=== PATIENT | female | born 1985 | race Caucasian/White ===

== ENCOUNTER 2017-09-30 18:23 | Emergency (ER) | payer SELFPAY ==
[~2017-09-30] VITALS: Ht 165.1 cm; Wt 66.7 kg
[2017-09-30 18:26] VITALS: BP 135/90
[2017-09-30] MEDS ORDERED: CEPHALEXIN 500 MG CAPSULE PO ONE (19:00)
[2017-09-30] MEDS ORDERED: SULFAMETH./TRIMETHOPRIM DS 800MG/160MG TABLET PO ONE (19:00)
[2017-09-30] MEDS ORDERED: CEPHALEXIN 500 MG CAPSULE ONE (19:02)
[2017-09-30] MEDS ORDERED: SULFAMETH./TRIMETHOPRIM DS 800MG/160MG TABLET ONE (19:03)
== END 2017-09-30 19:19 | disposition home or self-care (01) ==
LOC: ED 19:06
DX: L02.31 Cutaneous abscess of buttock (principal); L02.413 Cutaneous abscess of right upper limb; L02.416 Cutaneous abscess of left lower limb; L02.415 Cutaneous abscess of right lower limb
CPT/HCPCS: 99283